=== PATIENT | male | born 1980 | race Caucasian/White ===

== ENCOUNTER 2022-06-30 11:05 | Inpatient (IN) | payer OTHER ==
[2022-06-30 11:55] VITALS: BMI 27.9
[2022-06-30] MEDS ORDERED: DICYCLOMINE HCL 10 MG CAPSULE PO PRN (11:56)
[2022-06-30] MEDS ORDERED: MAGNESIUM CITRATE 300 ML BOTTLE PO PRN (11:56)
[2022-06-30] MEDS ORDERED: ACETAMINOPHEN 325 MG TABLET (FP) PO PRN ×2 (11:56)
[2022-06-30] MEDS ORDERED: BISMUTH SUBSALICYLATE 524 MG/30 ML PO PRN (11:56)
[2022-06-30] MEDS ORDERED: NICOTINE 10 MG CARTRIDGE (INHALER) IH PRN (11:56)
[2022-06-30] MEDS ORDERED: ONDANSETRON *ODT* 4 MG TABLET SL PRN (11:56)
[2022-06-30] MEDS ORDERED: NALOXONE HCL (KLOXXADO) 8 MG SPRAY NS PRN (11:56)
[2022-06-30] MEDS ORDERED: LOPERAMIDE HCL 2 MG CAPSULE PO PRN (11:56)
[2022-06-30] MEDS ORDERED: MAG HYDROX/AL HYDROX/SIMETH 30 ML UNIT-DOSE CUP PO PRN (11:56)
[2022-06-30] MEDS ORDERED: IBUPROFEN 400 MG TABLET (FP) PO PRN (11:56)
[2022-06-30] MEDS ORDERED: IBUPROFEN 600 MG TABLET (FP) PO PRN (11:56)
[2022-06-30] MEDS ORDERED: BENZOCAINE/MENTHOL (CHLORASEPTIC ) LOZENGE MM PRN (11:56)
[2022-06-30] MEDS ORDERED: MAGNESIUM HYDROX 2400MG/30ML ORAL SUSPENSION 30 ML CUP PO PRN (11:56)
[2022-06-30] MEDS ORDERED: BUPRENORPHINE HCL 150 MCG, BUPRENORPHINE HCL 75 MCG BC PRN (11:56)
[2022-06-30] MEDS ORDERED: BUPRENORPHINE HCL 150 MCG FILM BC ONE (12:40)
[2022-06-30] MEDS ORDERED: BUPRENORPHINE HCL 75 MCG FILM BC ONE (12:41)
[2022-06-30] MEDS ORDERED: BUPRENORPHINE HCL 150 MCG, BUPRENORPHINE HCL 75 MCG BC ONE (12:45)
[2022-06-30] MEDS ORDERED: cloNIDine HCL 0.1 MG TABLET PO ONE (12:45)
[2022-06-30] MEDS: METHOCARBAMOL 500 MG TABLET PO PRN (12:56)
[2022-06-30] MEDS: PRENATAL VITAMINS W/ FOLIC ACID TABLET (FP) PO SCH (12:56)
[2022-06-30] MEDS: diazePAM 5 MG TABLET PO PRN (12:56)
[2022-06-30] MEDS: hydrOXYzine PAMOATE 25 MG CAPSULE (FP) PO SCH ×3 (13:00→22:24)
[2022-06-30 15:52] LABS: ALBUMIN 3.9 g/dl (3.4-5.0); BLOOD UREA NITROGEN 15.8 mg/dL (7-18); CALCIUM 9.4 mg/dL (8.5-10.1)
[2022-06-30 15:53] LABS: HEMATOCRIT 40.3 % (35.4-49); HEMOGLOBIN 13.2 GM/dL (11.7-16.9); MCH 27.6 pg (25.7-33.7); MCHC 32.9 g/dl (32.0-35.9); MEAN CELL VOLUME 84.1 fl (80-96); MEAN PLT VOLUME 9.3 fl (7.5-11.1); PLATELET COUNT 371 10^3/uL (134-434); RDW 13.7 % (11.9-15.9); WHITE BLOOD COUNT 8.7 K/mm3 (4.0-10.0)
[2022-06-30 15:55] LABS: CREATININE 1.1 mg/dL (0.55-1.3)
[2022-06-30 15:57] LABS: BILIRUBIN,TOTAL 0.5 mg/dL (0.2-1)
[2022-06-30] MEDS: THIAMINE HCL 100 MG TABLET (FP) PO SCH (22:24)
[2022-06-30] MEDS: MELATONIN 5 MG TABLETS PO SCH (22:24)
[2022-06-30] MEDS: cloNIDine HCL 0.1 MG TABLET PO PRN (22:25)
[2022-07-01] MEDS ORDERED: BUPRENORPHINE HCL 150 MCG, BUPRENORPHINE HCL 75 MCG BC PRN
[2022-07-01] MEDS: diazePAM 5 MG TABLET PO PRN ×3 (06:14→22:27)
[2022-07-01] MEDS: BUPRENORPHINE HCL 150 MCG, BUPRENORPHINE HCL 75 MCG BC SCH ×2 (06:14→17:37)
[2022-07-01] MEDS: hydrOXYzine PAMOATE 25 MG CAPSULE (FP) PO SCH ×5 (06:16→22:27)
[2022-07-01] MEDS: NICOTINE 14 MG/24 HOURS TOPICAL PATCH TD SCH (10:31)
[2022-07-01] MEDS: PRENATAL VITAMINS W/ FOLIC ACID TABLET (FP) PO SCH (10:31)
[2022-07-01] MEDS: METHOCARBAMOL 500 MG TABLET PO PRN (22:27)
[2022-07-01] MEDS: THIAMINE HCL 100 MG TABLET (FP) PO SCH (22:27)
[2022-07-01] MEDS: MELATONIN 5 MG TABLETS PO SCH (22:28)
[2022-07-02] MEDS: BUPRENORPHINE HCL 450 MCG FILM BC SCH ×2 (06:16→17:38)
[2022-07-02] MEDS: hydrOXYzine PAMOATE 25 MG CAPSULE (FP) PO SCH ×5 (06:17→22:14)
[2022-07-02] MEDS: PRENATAL VITAMINS W/ FOLIC ACID TABLET (FP) PO SCH (10:40)
[2022-07-02] MEDS: NICOTINE 14 MG/24 HOURS TOPICAL PATCH TD SCH (10:40)
[2022-07-02] MEDS: diazePAM 5 MG TABLET PO PRN (10:41)
[2022-07-02] MEDS: GABAPENTIN 300 MG CAPSULE PO SCH ×2 (12:12→22:14)
[2022-07-02] MEDS: VENLAFAXINE HCL 150 MG E.R. CAPSULE PO SCH (12:14)
[2022-07-02] MEDS: THIAMINE HCL 100 MG TABLET (FP) PO SCH (22:14)
[2022-07-02] MEDS: MELATONIN 5 MG TABLETS PO SCH (22:15)
[2022-07-03] MEDS ORDERED: BUPRENORPHINE/NALOXONE 4 MG/1 MG FILM PACKET SL SCH (06:00)
[2022-07-03] MEDS: hydrOXYzine PAMOATE 25 MG CAPSULE (FP) PO SCH ×3 (06:00→15:10)
[2022-07-03] MEDS: VENLAFAXINE HCL 150 MG E.R. CAPSULE PO SCH (10:31)
[2022-07-03] MEDS: PRENATAL VITAMINS W/ FOLIC ACID TABLET (FP) PO SCH (10:31)
[2022-07-03] MEDS: GABAPENTIN 300 MG CAPSULE PO SCH (10:31)
[2022-07-03] MEDS: NICOTINE 14 MG/24 HOURS TOPICAL PATCH TD SCH (10:31)
[2022-07-03] MEDS: cloNIDine HCL 0.1 MG TABLET PO PRN (10:34)
[2022-07-03 12:58] VITALS: BP 138/91; PULSE 112; RESP 20; TEMP 98.1
[2022-07-04] MEDS ORDERED: BUPRENORPHINE/NALOXONE 8 MG/2 MG FILM PACKET SL ONE (06:00)
== END 2022-07-03 14:30 | disposition home or self-care (01) | DRG 773 ==
LOC: YASAS 11:05 → Y6N 12:27
PROVIDERS: ADMIT Allergy & Immunology; ATTEND Surgery
PROC: HZ2ZZZZ Detoxification Services for Substance Abuse Treatment (ICD-10-PCS; principal; 2022-06-30)
DX: F11.23 Opioid dependence with withdrawal (principal); F13.20 Sedative, hypnotic or anxiolytic dependence, uncomplicated; F10.10 Alcohol abuse, uncomplicated; F17.210 Nicotine dependence, cigarettes, uncomplicated; F40.00 Agoraphobia, unspecified; F43.10 Post-traumatic stress disorder, unspecified; Z56.0 Unemployment, unspecified
CPT/HCPCS: 36415; 80053; 85027; 86780; 93005; 93010; C9803-CS; J0735; U0003; U0005

== ENCOUNTER 2023-02-15 16:21 | Inpatient (IN) | payer OTHER ==
[2023-02-15 16:49] VITALS: BMI 27.1
[2023-02-15] MEDS ORDERED: BENZOCAINE/MENTHOL (CHLORASEPTIC ) LOZENGE MM PRN (17:10)
[2023-02-15] MEDS ORDERED: BENZONATATE 200 MG CAPSULE PO PRN (17:10)
[2023-02-15] MEDS ORDERED: MAGNESIUM HYDROX 2400MG/30ML ORAL SUSPENSION 30 ML CUP PO PRN (17:10)
[2023-02-15] MEDS ORDERED: ONDANSETRON *ODT* 4 MG TABLET SL PRN (17:10)
[2023-02-15] MEDS ORDERED: BISMUTH SUBSALICYLATE 524 MG/30 ML PO PRN (17:10)
[2023-02-15] MEDS ORDERED: P-EPHED 60MG/TRIPROLIDI 2.5MG TABLET PO PRN (17:10)
[2023-02-15] MEDS ORDERED: ACETAMINOPHEN 325 MG TABLET (FP) PO PRN (17:10)
[2023-02-15] MEDS ORDERED: IBUPROFEN 400 MG TABLET (FP) PO PRN (17:10)
[2023-02-15] MEDS ORDERED: LOPERAMIDE HCL 2 MG CAPSULE PO PRN (17:10)
[2023-02-15] MEDS ORDERED: METHOCARBAMOL 500 MG TABLET PO PRN (17:10)
[2023-02-15] MEDS ORDERED: DICYCLOMINE HCL 10 MG CAPSULE PO PRN (17:10)
[2023-02-15] MEDS ORDERED: NALOXONE HCL 0.4 MG/ML VIAL IM PRN (17:10)
[2023-02-15] MEDS ORDERED: MAG HYDROX/AL HYDROX/SIMETH 30 ML UNIT-DOSE CUP PO PRN (17:10)
[2023-02-15] MEDS ORDERED: IBUPROFEN 600 MG TABLET (FP) PO PRN (17:10)
[2023-02-15] MEDS ORDERED: guaiFENesin 600 MG TABLET.ER (FP) PO PRN (17:10)
[2023-02-15] MEDS ORDERED: NALOXONE HCL (KLOXXADO) 8 MG SPRAY NS PRN (17:10)
[2023-02-15] MEDS ORDERED: POLYETHYLENE GLYCOL (HEALTHYLAX) 3350 17 GM PACKET PO PRN (17:10)
[2023-02-15] MEDS ORDERED: hydrOXYzine PAMOATE 25 MG CAPSULE (FP) PO PRN (17:10)
[2023-02-15] MEDS: MELATONIN 5 MG TABLETS PO PRN (22:06)
[2023-02-15] MEDS: THIAMINE HCL 100 MG TABLET (FP) PO SCH (22:06)
[2023-02-15] MEDS: diazePAM 5 MG TABLET PO PRN (22:06)
[2023-02-16] MEDS: diazePAM 5 MG TABLET PO PRN ×3 (05:44→21:41)
[2023-02-16] MEDS ORDERED: cloNIDine HCL 0.1 MG TABLET PO PRN (09:07)
[2023-02-16] MEDS ORDERED: methaDONE HCL 10 MG TABLET (FOR DETOX USE ONLY) PO ONE (10:00)
[2023-02-16] MEDS: PRENATAL VITAMINS W/ FOLIC ACID TABLET (FP) PO SCH (10:12)
[2023-02-16] MEDS: NICOTINE POLACRILEX 2 MG GUM BUC PRN (10:15)
[2023-02-16 12:03] LABS: HEMATOCRIT 39.4 % (35.4-49); HEMOGLOBIN 13.4 GM/dL (11.7-16.9); MCH 28.2 pg (25.7-33.7); MCHC 34.1 g/dl (32.0-35.9); MEAN CELL VOLUME 82.7 fl (80-96); MEAN PLT VOLUME 10.1 fl (7.5-11.1); PLATELET COUNT 256 10^3/uL (134-434); RBC 4.76 M/mm3 (4.00-5.60); RDW 13.5 % (11.9-15.9); WHITE BLOOD COUNT 9.9 K/mm3 (4.0-10.0)
[2023-02-16 12:29] LABS: CALCIUM 9.4 mg/dL (8.5-10.1)
[2023-02-16 12:30] LABS: BLOOD UREA NITROGEN 19.5 mg/dL (7-18)
[2023-02-16 12:33] LABS: ALBUMIN 3.8 g/dl (3.4-5.0)
[2023-02-16 12:35] LABS: BILIRUBIN,TOTAL 0.6 mg/dL (0.2-1); TOT PROT 7.6 g/dl (6.4-8.2)
[2023-02-16] MEDS: MELATONIN 5 MG TABLETS PO PRN (21:40)
[2023-02-16] MEDS: THIAMINE HCL 100 MG TABLET (FP) PO SCH (21:40)
[2023-02-17] MEDS: diazePAM 5 MG TABLET PO PRN ×2 (09:29→21:09)
[2023-02-17] MEDS: PRENATAL VITAMINS W/ FOLIC ACID TABLET (FP) PO SCH (09:29)
[2023-02-17] MEDS: NICOTINE POLACRILEX 2 MG GUM BUC PRN ×2 (14:57→21:17)
[2023-02-17] MEDS: THIAMINE HCL 100 MG TABLET (FP) PO SCH (21:09)
[2023-02-17] MEDS: MELATONIN 5 MG TABLETS PO PRN (21:09)
[2023-02-18] MEDS ORDERED: methaDONE HCL 10 MG TABLET (FOR DETOX USE ONLY) PO ONE (10:00)
[2023-02-18 10:11] VITALS: BP 137/93; PULSE 82; RESP 18; TEMP 97.5
[2023-02-18] MEDS: PRENATAL VITAMINS W/ FOLIC ACID TABLET (FP) PO SCH (10:54)
[2023-02-20] MEDS ORDERED: methaDONE HCL 10 MG TABLET (FOR DETOX USE ONLY) PO ONE (10:00)
== END 2023-02-18 12:01 | disposition left against medical advice (07) | DRG 770 ==
LOC: YASAS 16:21 → Y6N 18:24
PROVIDERS: ADMIT Allergy & Immunology; ATTEND Surgery
PROC: HZ2ZZZZ Detoxification Services for Substance Abuse Treatment (ICD-10-PCS; principal; 2023-02-15)
DX: F11.23 Opioid dependence with withdrawal (principal); F13.20 Sedative, hypnotic or anxiolytic dependence, uncomplicated; F17.210 Nicotine dependence, cigarettes, uncomplicated
CPT/HCPCS: 36415; 80053; 85027; 86780; C9803-CS; U0003; U0005